=== PATIENT | female | born 1950 | race Caucasian/White ===

== ENCOUNTER 2016-10-18 16:12 | Inpatient (IN) | payer BC, MEDICARE ==
[~2016-10-18] VITALS: Ht 167.6 cm; Wt 76.0 kg
[~2016-10-18 16:12] MED LIST: ALPR0.254 PO; AMLO5TAB2 PO; CARV-39 PO; CARV12.52 PO; CARV12.543 PO; CARV6.252 PO; DABI150C PO; DOXY100T PO; FLUT1AER INH; FURO-92 PO; FURO20TA3 PO; FURO40TA6 PO; HYDR-3138 PO; IPRA3AMP NPPB; LISI-170 PO; MAGN400T26 PO; POT25TAB PO; POTA20TA14 PO; POTA20TA89 PO; PRED10TA PO; PRED5TAB PO; SPIR25TA PO
[2016-10-18] MEDS ORDERED: SODIUM CHLORIDE FLUSH 10ML SYR IVF ONE (16:30)
[2016-10-18 17:07] LABS: HEMOGLOBIN 13.8 g/dL (11.7-16.4)
[2016-10-18 17:17] LABS: BLOOD UREA NITROGEN 15 mg/dL (7-18)
[2016-10-18 17:22] LABS: IS PT STATUS REG ER OR PRE ER? YES
[2016-10-18] MEDS ORDERED: FUROSEMIDE 40 MG/4 ML IV ONE (18:00)
[2016-10-18] MEDS ORDERED: POTASSIUM CHLORIDE 20 MEQ TAB.ER.PRT PO ONE (18:30)
[2016-10-18] MEDS ORDERED: FUROSEMIDE 40 MG/4 ML ONE (18:59)
[2016-10-18] MEDS ORDERED: POTASSIUM CHLORIDE 20 MEQ TAB.ER.PRT ONE (19:00)
[2016-10-18] MEDS ORDERED: SPIR25TA3 PO (19:18)
[2016-10-18] MEDS ORDERED: LEVO25TA4 PO (19:18)
[2016-10-18] MEDS ORDERED: FURO20TA3 PO (19:18)
[2016-10-18] MEDS ORDERED: POTA10TA11 PO (19:18)
[2016-10-18] MEDS ORDERED: BISACODYL 10 MG SUPP PR PRN (19:30)
[2016-10-18] MEDS ORDERED: POLYETHYLENE GLYCOL 17 GM PACKET PO PRN (19:30)
[2016-10-18] MEDS ORDERED: ONDANSETRON 2MG/ML, 2ML IVP PRN (19:30)
[2016-10-18] MEDS ORDERED: ACETAMINOPHEN 325 MG TABLET PO PRN (19:30)
[2016-10-18] MEDS ORDERED: DABIGATRAN 150 MG CAPSULE PO SCH (21:00)
[2016-10-18] MEDS ORDERED: RIVA10TA PO (21:10)
[2016-10-18] MEDS ORDERED: MAGNESIUM SULFATE PMX 4GM/100M 100 ML IV ONE (23:00)
[2016-10-18] MEDS: HEPARIN 5,000 UNITS/ML, 1ML SQ SCH (23:47)
[2016-10-18] MEDS: SODIUM CHLORIDE FLUSH 10ML SYR IVF SCH (23:49)
[2016-10-18] MEDS: SPIRONOLACTONE 25 MG TABLET PO SCH (23:49)
[2016-10-18] MEDS: CARVEDILOL 6.25 MG TABLET PO SCH (23:49)
[2016-10-18] MEDS: RIVAROXABAN 20 MG TABLET PO SCH (23:49)
[2016-10-18 23:55] VITALS: BP 135/96
[2016-10-19 02:07] VITALS: BP 114/84
[2016-10-19] MEDS: HYDROcodone/APAP 5/325 TABLET PO PRN ×3 (02:19→20:39)
[2016-10-19] MEDS: HEPARIN 5,000 UNITS/ML, 1ML SQ SCH (03:19)
[2016-10-19] MEDS: LEVOTHYROXINE 25 MCG TABLET PO SCH (05:37)
[2016-10-19 05:44] LABS: HEMOGLOBIN 13.1 g/dL (11.7-16.4)
[2016-10-19 05:58] LABS: ASPARTATE AMINO TRANSFERASE 25 U/L (15-37); BLOOD UREA NITROGEN 13 mg/dL (7-18)
[2016-10-19 06:57] VITALS: BP 112/81
[2016-10-19] MEDS: MAGNESIUM OXIDE 400 MG TABLET PO SCH (08:45)
[2016-10-19] MEDS: SPIRONOLACTONE 25 MG TABLET PO SCH ×2 (08:45→20:39)
[2016-10-19] MEDS: FUROSEMIDE 40 MG/4 ML IV SCH ×2 (08:45→17:54)
[2016-10-19] MEDS: POTASSIUM CHLORIDE 20 MEQ TAB.ER.PRT PO SCH ×2 (08:45→17:54)
[2016-10-19] MEDS: CARVEDILOL 6.25 MG TABLET PO SCH ×2 (08:45→20:39)
[2016-10-19] MEDS: SODIUM CHLORIDE FLUSH 10ML SYR IVF SCH ×2 (08:45→20:40)
[2016-10-19] MEDS: SENNA/DOCUSATE TABLET PO SCH (08:46)
[2016-10-19] MEDS: FLUTICASONE/VILANTEROL 100-25MCG/INH INH SCH (11:26)
[2016-10-19 13:56] VITALS: BP 106/74
[2016-10-19 18:44] VITALS: BP 112/82
[2016-10-19] MEDS: RIVAROXABAN 20 MG TABLET PO SCH (20:39)
[2016-10-20 00:02] VITALS: BP 105/74
[2016-10-20] MEDS: LEVOTHYROXINE 25 MCG TABLET PO SCH (05:52)
[2016-10-20 06:49] LABS: BLOOD UREA NITROGEN 16 mg/dL (7-18)
[2016-10-20 07:09] VITALS: BP 118/82
[2016-10-20] MEDS: CARVEDILOL 6.25 MG TABLET PO SCH ×2 (08:34→21:27)
[2016-10-20] MEDS: MAGNESIUM OXIDE 400 MG TABLET PO SCH (08:34)
[2016-10-20] MEDS: FUROSEMIDE 40 MG/4 ML IV SCH ×2 (08:34→17:59)
[2016-10-20] MEDS: FLUTICASONE/VILANTEROL 100-25MCG/INH INH SCH (08:35)
[2016-10-20] MEDS: SODIUM CHLORIDE FLUSH 10ML SYR IVF SCH ×2 (08:35→21:45)
[2016-10-20] MEDS: SENNA/DOCUSATE TABLET PO SCH (08:35)
[2016-10-20] MEDS: SPIRONOLACTONE 25 MG TABLET PO SCH ×2 (08:35→21:27)
[2016-10-20] MEDS: POTASSIUM CHLORIDE 20 MEQ TAB.ER.PRT PO SCH ×2 (08:35→17:59)
[2016-10-20 13:13] VITALS: BP 112/82
[2016-10-20] MEDS: HYDROcodone/APAP 5/325 TABLET PO PRN ×2 (18:08→23:12)
[2016-10-20 19:48] VITALS: BP 118/85
[2016-10-20] MEDS: RIVAROXABAN 20 MG TABLET PO SCH (21:27)
[2016-10-20] MEDS: LISINOPRIL 5 MG TABLET PO SCH (21:28)
[2016-10-20] MEDS ORDERED: MAGNESIUM SULFATE PMX 2GM/50ML 50 ML IV ONE (21:30)
[2016-10-20] MEDS: ALBUTEROL/IPRATROPIUM 2.5MG/0.5MG, 3 ML NPPB SCH (22:39)
[2016-10-21 01:42] VITALS: BP_SYST 162; BP_SYST 91; BP_DIAS 62; BP_DIAS 82
[2016-10-21] MEDS: LEVOTHYROXINE 25 MCG TABLET PO SCH (05:25)
[2016-10-21 06:08] LABS: BLOOD UREA NITROGEN 18 mg/dL (7-18)
[2016-10-21 07:05] VITALS: BP 100/68
[2016-10-21] MEDS: FLUTICASONE/VILANTEROL 100-25MCG/INH INH SCH (08:33)
[2016-10-21] MEDS: FUROSEMIDE 40 MG/4 ML IV SCH ×2 (08:34→17:08)
[2016-10-21] MEDS: MAGNESIUM OXIDE 400 MG TABLET PO SCH (08:34)
[2016-10-21] MEDS: POTASSIUM CHLORIDE 20 MEQ TAB.ER.PRT PO SCH ×2 (08:34→17:08)
[2016-10-21] MEDS: LISINOPRIL 5 MG TABLET PO SCH ×2 (08:34→20:12)
[2016-10-21] MEDS: CARVEDILOL 6.25 MG TABLET PO SCH ×2 (08:34→20:12)
[2016-10-21] MEDS: SENNA/DOCUSATE TABLET PO SCH (08:34)
[2016-10-21] MEDS: SPIRONOLACTONE 25 MG TABLET PO SCH ×2 (08:34→20:12)
[2016-10-21] MEDS: SODIUM CHLORIDE FLUSH 10ML SYR IVF SCH ×2 (08:35→20:13)
[2016-10-21] MEDS: HYDROcodone/APAP 5/325 TABLET PO PRN ×4 (08:44→20:17)
[2016-10-21] MEDS: ALBUTEROL/IPRATROPIUM 2.5MG/0.5MG, 3 ML NPPB SCH ×2 (10:24→22:25)
[2016-10-21 15:07] VITALS: BP 91/63
[2016-10-21 19:10] VITALS: BP 107/77
[2016-10-21] MEDS: RIVAROXABAN 20 MG TABLET PO SCH (20:12)
[2016-10-22 02:31] VITALS: BP 116/78
[2016-10-22] MEDS: LEVOTHYROXINE 25 MCG TABLET PO SCH (05:36)
[2016-10-22 05:56] LABS: BLOOD UREA NITROGEN 20 mg/dL (7-18)
[2016-10-22 06:45] VITALS: BP 117/84
[2016-10-22] MEDS: SENNA/DOCUSATE TABLET PO SCH (09:00)
[2016-10-22] MEDS ORDERED: FUROSEMIDE 40 MG TABLET PO SCH (09:00)
[2016-10-22] MEDS: SPIRONOLACTONE 25 MG TABLET PO SCH ×2 (09:31→21:22)
[2016-10-22] MEDS: POTASSIUM CHLORIDE 20 MEQ TAB.ER.PRT PO SCH ×2 (09:31→17:19)
[2016-10-22] MEDS: MAGNESIUM OXIDE 400 MG TABLET PO SCH (09:31)
[2016-10-22] MEDS: CARVEDILOL 6.25 MG TABLET PO SCH ×2 (09:32→21:22)
[2016-10-22] MEDS: LISINOPRIL 5 MG TABLET PO SCH ×2 (09:33→21:22)
[2016-10-22] MEDS: SODIUM CHLORIDE FLUSH 10ML SYR IVF SCH ×2 (09:34→21:22)
[2016-10-22] MEDS: FLUTICASONE/VILANTEROL 100-25MCG/INH INH SCH (09:34)
[2016-10-22] MEDS: HYDROcodone/APAP 5/325 TABLET PO PRN ×2 (10:04→21:22)
[2016-10-22] MEDS: ALBUTEROL/IPRATROPIUM 2.5MG/0.5MG, 3 ML NPPB SCH ×4 (11:17→23:17)
[2016-10-22 12:38] VITALS: BP 91/61
[2016-10-22 20:00] VITALS: BP 106/74
[2016-10-22] MEDS: RIVAROXABAN 20 MG TABLET PO SCH (21:22)
[2016-10-23] VITALS (8 sets, daily range): BP systolic 71–103; BP diastolic 37–74
[2016-10-23 05:30] LABS: HEMOGLOBIN 13.9 g/dL (11.7-16.4)
[2016-10-23] MEDS: LEVOTHYROXINE 25 MCG TABLET PO SCH (05:33)
[2016-10-23 05:38] LABS: BLOOD UREA NITROGEN 22 mg/dL (7-18)
[2016-10-23] MEDS ORDERED: SODIUM CHLORIDE 0.9%, 500ML IVBOLUS ONE ×4 (06:15→20:30)
[2016-10-23] MEDS ORDERED: PHARMACY MAY ADJ FOR RENAL FX MC PRN (06:30)
[2016-10-23] MEDS: SODIUM CHLORIDE FLUSH 10ML SYR IVF SCH ×2 (09:00→23:14)
[2016-10-23] MEDS: SPIRONOLACTONE 25 MG TABLET PO SCH ×2 (09:00→20:17)
[2016-10-23] MEDS: MAGNESIUM OXIDE 400 MG TABLET PO SCH (09:00)
[2016-10-23] MEDS: FLUTICASONE/VILANTEROL 100-25MCG/INH INH SCH (09:00)
[2016-10-23] MEDS: SENNA/DOCUSATE TABLET PO SCH (09:00)
[2016-10-23] MEDS: ALBUTEROL/IPRATROPIUM 2.5MG/0.5MG, 3 ML NPPB SCH ×2 (09:13→21:25)
[2016-10-23] MEDS: PIPERACILLIN/TAZO/PMX 3.375GM 50 ML IV SCH ×2 (10:00→23:14)
[2016-10-23 12:09] LABS: BLOOD UREA NITROGEN 23 mg/dL (7-18)
[2016-10-23] MEDS ORDERED: PHARMACOKINETIC MONITORING MC PRN (18:30)
[2016-10-23] MEDS ORDERED: PHARMACOKINETIC CONSULTATION MC ONE (18:30)
[2016-10-23] MEDS ORDERED: VANCOMYCIN 1,400 MG in SODIUM CHLORIDE 0.9% 250 ML IV SCH (18:30)
[2016-10-23] MEDS ORDERED: VANCOMYCIN PER PHARMACY MC PRN (18:30)
[2016-10-23] MEDS: RIVAROXABAN 20 MG TABLET PO SCH (20:51)
[2016-10-24] MEDS ORDERED: SODIUM CHLORIDE 0.9% 1,000 ML IV ONE (01:30)
[2016-10-24 02:15] VITALS: BP 75/53
[2016-10-24 02:20] VITALS: BP 74/55
[2016-10-24] MEDS ORDERED: SODIUM CHLORIDE 0.9% 1,000ML IVBOLUS ONE ×3 (02:30→04:00)
[2016-10-24 03:59] VITALS: BP 67/45
[2016-10-24] MEDS ORDERED: NOREPINEPHRINE 4 MG in SODIUM CHLORIDE 0.9% 246 ML IV PRN (04:00)
[2016-10-24] MEDS: PIPERACILLIN/TAZO/PMX 3.375GM 50 ML IV SCH ×3 (05:49→17:39)
[2016-10-24] MEDS: LEVOTHYROXINE 25 MCG TABLET PO SCH (05:50)
[2016-10-24 05:58] LABS: HEMOGLOBIN 12.7 g/dL (11.7-16.4)
[2016-10-24 06:12] LABS: BLOOD UREA NITROGEN 26 mg/dL (7-18)
[2016-10-24 06:28] LABS: DIFF TOTAL CELLS COUNTED 100 CELL DIFF
[2016-10-24 06:30] LABS: VERIFY COUNTS? YES
[2016-10-24 06:33] LABS: ANISOCYTOSIS 1+; HYPOCHROMIA 1+
[2016-10-24] MEDS: ALBUTEROL/IPRATROPIUM 2.5MG/0.5MG, 3 ML NPPB SCH ×2 (09:00→21:19)
[2016-10-24] MEDS: SENNA/DOCUSATE TABLET PO SCH ×2 (09:00→09:30)
[2016-10-24] MEDS: MAGNESIUM OXIDE 400 MG TABLET PO SCH (09:30)
[2016-10-24] MEDS: SODIUM CHLORIDE FLUSH 10ML SYR IVF SCH ×2 (09:31→19:41)
[2016-10-24] MEDS: FLUTICASONE/VILANTEROL 100-25MCG/INH INH SCH (09:31)
[2016-10-24] MEDS: HYDROcodone/APAP 5/325 TABLET PO PRN ×2 (09:47→19:42)
[2016-10-24] MEDS: SODIUM CHLORIDE 0.9%, 250ML IVBOLUS PRN (16:00)
[2016-10-24] MEDS: RIVAROXABAN 20 MG TABLET PO SCH (19:41)
[2016-10-25] MEDS: PIPERACILLIN/TAZO/PMX 3.375GM 50 ML IV SCH ×2 (00:10→06:15)
[2016-10-25 04:00] VITALS: BP 105/83
[2016-10-25 04:56] LABS: HEMOGLOBIN 12.8 g/dL (11.7-16.4)
[2016-10-25 05:00] LABS: BLOOD UREA NITROGEN 28 mg/dL (7-18)
[2016-10-25 05:04] LABS: ASPARTATE AMINO TRANSFERASE 20 U/L (15-37)
[2016-10-25 06:03] LABS: DIFF TOTAL CELLS COUNTED 100 CELL DIFF
[2016-10-25 06:04] LABS: VERIFY COUNTS? YES
[2016-10-25 06:05] LABS: ANISOCYTOSIS 1+; LARGE PLATELETS 1+
[2016-10-25] MEDS: LEVOTHYROXINE 25 MCG TABLET PO SCH (06:15)
[2016-10-25] MEDS ORDERED: VANCOMYCIN 1,400 MG in SODIUM CHLORIDE 0.9% 250 ML IV SCH (08:00)
[2016-10-25] MEDS: FLUTICASONE/VILANTEROL 100-25MCG/INH INH SCH (08:40)
[2016-10-25] MEDS: MAGNESIUM OXIDE 400 MG TABLET PO SCH (08:40)
[2016-10-25] MEDS: SENNA/DOCUSATE TABLET PO SCH (08:43)
[2016-10-25] MEDS: ALBUTEROL/IPRATROPIUM 2.5MG/0.5MG, 3 ML NPPB SCH ×2 (08:43→18:35)
[2016-10-25] MEDS: SODIUM CHLORIDE FLUSH 10ML SYR IVF SCH ×2 (08:43→19:29)
[2016-10-25] MEDS ORDERED: CEFAZOLIN PMX 2GM/100ML 100 ML IV SCH (11:00)
[2016-10-25] MEDS: HYDROcodone/APAP 5/325 TABLET PO PRN ×2 (12:10→19:30)
[2016-10-25] MEDS: RIVAROXABAN 20 MG TABLET PO SCH (19:29)
[2016-10-25] MEDS: CEFAZOLIN PMX 2GM/50ML 50 ML IV SCH (19:29)
[2016-10-26] MEDS: SODIUM CHLORIDE 0.9%, 250ML IVBOLUS PRN ×2 (00:19→05:37)
[2016-10-26] MEDS: CEFAZOLIN PMX 2GM/50ML 50 ML IV SCH ×3 (02:55→22:46)
[2016-10-26] MEDS: HYDROcodone/APAP 5/325 TABLET PO PRN ×4 (03:21→14:58)
[2016-10-26] MEDS: ALBUTEROL/IPRATROPIUM 2.5MG/0.5MG, 3 ML NPPB SCH ×2 (03:24→15:40)
[2016-10-26 04:26] VITALS: BP 130/99
[2016-10-26 04:53] LABS: HEMOGLOBIN 13.1 g/dL (11.7-16.4)
[2016-10-26] MEDS: LEVOTHYROXINE 25 MCG TABLET PO SCH (06:07)
[2016-10-26] MEDS: SENNA/DOCUSATE TABLET PO SCH (09:00)
[2016-10-26] MEDS: FLUTICASONE/VILANTEROL 100-25MCG/INH INH SCH (09:32)
[2016-10-26] MEDS: SODIUM CHLORIDE FLUSH 10ML SYR IVF SCH ×2 (09:32→22:48)
[2016-10-26] MEDS: MAGNESIUM OXIDE 400 MG TABLET PO SCH (09:33)
[2016-10-26] MEDS: ACETYLCYSTEINE 600 MG CAPSULE PO SCH (22:47)
[2016-10-26] MEDS: RIVAROXABAN 20 MG TABLET PO SCH (22:47)
[2016-10-26 22:57] VITALS: BP 145/94
[2016-10-27 01:26] VITALS: BP 142/101
[2016-10-27] MEDS ORDERED: OMNIPAQUE 350 MG/ML, 100ML BOTTLE ONE (03:39)
[2016-10-27 05:55] LABS: HEMOGLOBIN 13.3 g/dL (11.7-16.4)
[2016-10-27] MEDS: LEVOTHYROXINE 25 MCG TABLET PO SCH (06:00)
[2016-10-27] MEDS: CEFAZOLIN PMX 2GM/50ML 50 ML IV SCH ×3 (06:00→22:00)
[2016-10-27 06:21] LABS: BLOOD UREA NITROGEN 16 mg/dL (7-18)
[2016-10-27 07:05] VITALS: BP 128/91
[2016-10-27] MEDS: SODIUM CHLORIDE FLUSH 10ML SYR IVF SCH ×2 (09:00→21:06)
[2016-10-27] MEDS: SENNA/DOCUSATE TABLET PO SCH (09:00)
[2016-10-27] MEDS ORDERED: PROMETHAZINE 25 MG/ML, 1ML IM PRN (09:40)
[2016-10-27] MEDS: MAGNESIUM OXIDE 400 MG TABLET PO SCH (11:44)
[2016-10-27] MEDS: ACETYLCYSTEINE 600 MG CAPSULE PO SCH ×2 (11:44→21:06)
[2016-10-27] MEDS: FLUTICASONE/VILANTEROL 100-25MCG/INH INH SCH (11:45)
[2016-10-27 12:36] VITALS: BP 132/85
[2016-10-27] MEDS: HYDROcodone/APAP 5/325 TABLET PO PRN (18:19)
[2016-10-27 20:08] VITALS: BP 100/70
[2016-10-27] MEDS: RIVAROXABAN 20 MG TABLET PO SCH (21:06)
[2016-10-28] VITALS: BP 123/84
[2016-10-28] MEDS: LEVOTHYROXINE 25 MCG TABLET PO SCH (06:00)
[2016-10-28] MEDS: CEFAZOLIN PMX 2GM/50ML 50 ML IV SCH ×3 (06:00→22:19)
[2016-10-28 06:59] VITALS: BP 118/77
[2016-10-28] MEDS: SENNA/DOCUSATE TABLET PO SCH (09:00)
[2016-10-28] MEDS: SODIUM CHLORIDE FLUSH 10ML SYR IVF SCH ×2 (09:00→22:18)
[2016-10-28] MEDS: MAGNESIUM OXIDE 400 MG TABLET PO SCH (09:34)
[2016-10-28] MEDS: FLUTICASONE/VILANTEROL 100-25MCG/INH INH SCH (09:35)
[2016-10-28] MEDS: HYDROcodone/APAP 5/325 TABLET PO PRN ×2 (09:35→20:51)
[2016-10-28] MEDS: ACETYLCYSTEINE 600 MG CAPSULE PO SCH ×2 (09:35→20:51)
[2016-10-28] MEDS: ALBUTEROL/IPRATROPIUM 2.5MG/0.5MG, 3 ML NPPB SCH ×3 (10:15→21:00)
[2016-10-28 14:43] VITALS: BP 132/91
[2016-10-28] MEDS: FUROSEMIDE 20 MG/2 ML IV SCH (15:03)
[2016-10-28 19:11] VITALS: BP 117/83
[2016-10-28] MEDS: RIVAROXABAN 20 MG TABLET PO SCH (20:51)
[2016-10-29 01:23] VITALS: BP 119/79
[2016-10-29 04:33] LABS: HEMOGLOBIN 13.6 g/dL (11.7-16.4)
[2016-10-29 04:50] LABS: BLOOD UREA NITROGEN 15 mg/dL (7-18)
[2016-10-29] MEDS: LEVOTHYROXINE 25 MCG TABLET PO SCH (06:18)
[2016-10-29] MEDS: CEFAZOLIN PMX 2GM/50ML 50 ML IV SCH ×3 (06:19→22:26)
[2016-10-29] MEDS: FUROSEMIDE 20 MG/2 ML IV SCH ×2 (07:30→17:07)
[2016-10-29 07:39] VITALS: BP 123/88
[2016-10-29] MEDS: SENNA/DOCUSATE TABLET PO SCH (07:56)
[2016-10-29] MEDS: ACETYLCYSTEINE 600 MG CAPSULE PO SCH ×2 (07:56→20:34)
[2016-10-29] MEDS: MAGNESIUM OXIDE 400 MG TABLET PO SCH (07:56)
[2016-10-29] MEDS: FLUTICASONE/VILANTEROL 100-25MCG/INH INH SCH (07:56)
[2016-10-29] MEDS: SODIUM CHLORIDE FLUSH 10ML SYR IVF SCH ×2 (07:56→20:34)
[2016-10-29] MEDS: HYDROcodone/APAP 5/325 TABLET PO PRN ×2 (11:39→20:33)
[2016-10-29 13:47] VITALS: BP 130/86
[2016-10-29 18:53] VITALS: BP 129/89
[2016-10-29] MEDS: RIVAROXABAN 20 MG TABLET PO SCH (20:33)
[2016-10-29] MEDS: ALBUTEROL/IPRATROPIUM 2.5MG/0.5MG, 3 ML NPPB SCH (21:15)
[2016-10-30 00:55] VITALS: BP 126/83
[2016-10-30] MEDS: HYDROcodone/APAP 5/325 TABLET PO PRN ×2 (00:56→11:51)
[2016-10-30 04:41] LABS: BLOOD UREA NITROGEN 13 mg/dL (7-18)
[2016-10-30] MEDS: CEFAZOLIN PMX 2GM/50ML 50 ML IV SCH ×3 (06:45→21:00)
[2016-10-30] MEDS: LEVOTHYROXINE 25 MCG TABLET PO SCH (06:45)
[2016-10-30] MEDS: ALBUTEROL/IPRATROPIUM 2.5MG/0.5MG, 3 ML NPPB SCH ×3 (07:05→20:43)
[2016-10-30] MEDS: FUROSEMIDE 20 MG/2 ML IV SCH ×2 (07:30→17:00)
[2016-10-30 07:46] VITALS: BP 111/78
[2016-10-30] MEDS: SODIUM CHLORIDE FLUSH 10ML SYR IVF SCH ×2 (09:00→20:58)
[2016-10-30] MEDS: SENNA/DOCUSATE TABLET PO SCH (09:00)
[2016-10-30] MEDS: FLUTICASONE/VILANTEROL 100-25MCG/INH INH SCH (09:00)
[2016-10-30] MEDS: ACETYLCYSTEINE 600 MG CAPSULE PO SCH ×2 (09:00→20:58)
[2016-10-30] MEDS: MAGNESIUM OXIDE 400 MG TABLET PO SCH (09:00)
[2016-10-30 13:21] VITALS: BP 122/84
[2016-10-30 19:28] VITALS: BP 136/94
[2016-10-30] MEDS: RIVAROXABAN 20 MG TABLET PO SCH (20:58)
[2016-10-31 03:15] VITALS: BP 130/89
[2016-10-31 04:57] LABS: HEMOGLOBIN 13.1 g/dL (11.7-16.4)
[2016-10-31 05:05] LABS: BLOOD UREA NITROGEN 11 mg/dL (7-18)
[2016-10-31] MEDS: CEFAZOLIN PMX 2GM/50ML 50 ML IV SCH ×3 (05:39→21:13)
[2016-10-31] MEDS: LEVOTHYROXINE 25 MCG TABLET PO SCH (05:39)
[2016-10-31 08:33] VITALS: BP 129/93
[2016-10-31] MEDS: ALBUTEROL/IPRATROPIUM 2.5MG/0.5MG, 3 ML NPPB SCH ×3 (08:55→20:52)
[2016-10-31] MEDS: SENNA/DOCUSATE TABLET PO SCH (09:00)
[2016-10-31] MEDS: SODIUM CHLORIDE FLUSH 10ML SYR IVF SCH ×2 (09:37→21:14)
[2016-10-31] MEDS: FUROSEMIDE 20 MG/2 ML IV SCH ×2 (09:37→17:22)
[2016-10-31] MEDS: MAGNESIUM OXIDE 400 MG TABLET PO SCH (09:37)
[2016-10-31] MEDS: FLUTICASONE/VILANTEROL 100-25MCG/INH INH SCH (09:37)
[2016-10-31] MEDS: ACETYLCYSTEINE 600 MG CAPSULE PO SCH ×2 (09:38→21:14)
[2016-10-31 14:07] VITALS: BP 119/81
[2016-10-31 17:06] VITALS: BP 129/91
[2016-10-31] MEDS: HYDROcodone/APAP 5/325 TABLET PO PRN (18:01)
[2016-10-31 19:18] VITALS: BP 118/80
[2016-10-31] MEDS: RIVAROXABAN 20 MG TABLET PO SCH (21:13)
[2016-11-01 02:15] VITALS: BP 133/89
[2016-11-01] MEDS: LEVOTHYROXINE 25 MCG TABLET PO SCH (05:55)
[2016-11-01] MEDS: CEFAZOLIN PMX 2GM/50ML 50 ML IV SCH ×2 (05:55→13:33)
[2016-11-01 06:13] LABS: HEMOGLOBIN 12.9 g/dL (11.7-16.4)
[2016-11-01 06:25] LABS: BLOOD UREA NITROGEN 8 mg/dL (7-18)
[2016-11-01] MEDS: ALBUTEROL/IPRATROPIUM 2.5MG/0.5MG, 3 ML NPPB SCH (07:11)
[2016-11-01 07:21] VITALS: BP 137/91
[2016-11-01] MEDS ORDERED: ALBUTEROL/IPRATROPIUM 2.5MG/0.5MG, 3 ML NPPB PRN (08:00)
[2016-11-01] MEDS: MAGNESIUM OXIDE 400 MG TABLET PO SCH (09:38)
[2016-11-01] MEDS: SODIUM CHLORIDE FLUSH 10ML SYR IVF SCH (09:38)
[2016-11-01] MEDS: HYDROcodone/APAP 5/325 TABLET PO PRN (09:38)
[2016-11-01] MEDS: ACETYLCYSTEINE 600 MG CAPSULE PO SCH (09:38)
[2016-11-01] MEDS: FLUTICASONE/VILANTEROL 100-25MCG/INH INH SCH (09:38)
[2016-11-01] MEDS: FUROSEMIDE 20 MG/2 ML IV SCH (09:39)
[2016-11-01] MEDS: SENNA/DOCUSATE TABLET PO SCH (09:39)
[2016-11-01] MEDS ORDERED: CEFA2PLA9 IV (11:49)
[2016-11-01] MEDS ORDERED: LISI5TAB7 PO (15:18)
== END 2016-11-01 15:10 | DRG 949 ==
LOC: ED 18:00 → EDIP 18:01 → ED 18:14 → 4EST 22:54 → CCU 10-24 02:29 → ICU 10-27 03:14 → 4WST 10-31 16:57
PROC: 0T9B70Z Drainage of Bladder with Drainage Device, Via Natural or Artificial Opening (ICD-10-PCS; 2016-10-18)
PROC: 02HV33Z Insertion of Infusion Device into Superior Vena Cava, Percutaneous Approach (ICD-10-PCS; principal; 2016-10-31)
PROC: B548ZZA Ultrasonography of Superior Vena Cava, Guidance (ICD-10-PCS; 2016-10-31)
DX: Z79.01 Long term (current) use of anticoagulants (principal); A41.01 Sepsis due to Methicillin susceptible Staphylococcus aureus; I50.43 Acute on chronic combined systolic (congestive) and diastolic (congestive) heart failure; G93.41 Metabolic encephalopathy; D68.69 Other thrombophilia; E44.0 Moderate protein-calorie malnutrition; E87.1 Hypo-osmolality and hyponatremia; I42.9 Cardiomyopathy, unspecified; I48.92 Unspecified atrial flutter; I11.0 Hypertensive heart disease with heart failure; E03.9 Hypothyroidism, unspecified; J44.9 Chronic obstructive pulmonary disease, unspecified; I48.91 Unspecified atrial fibrillation; Z93.3 Colostomy status; Z95.0 Presence of cardiac pacemaker; Z87.891 Personal history of nicotine dependence; Z80.0 Family history of malignant neoplasm of digestive organs; Z82.61 Family history of arthritis; E87.6 Hypokalemia; E87.5 Hyperkalemia; L72.3 Sebaceous cyst
CPT/HCPCS: 36415; 36569; 70450; 71010; 71260; 72126; 72129; 72132; 74177; 76937; 77001; 80048; 80053; 80076; 81001; 81003; 82040; 82533; 82962; 83605; 83735; 83880; 84484; 85025; 85610; 85651; 85730; 86141; 87040; 87077; 87081; 87086; 87147; 87186; 93005; 93306; 93308; 93321; 93325; 93880; 94640; 96374; J0690; J1940; J2405; J2543; J2550; J3370; J7620; Q9967; C1751; J3475; J7030; J7040; J7050

== ENCOUNTER 2016-11-09 09:12 | Inpatient (IN) | payer MEDICARE, BC ==
[~2016-11-09] VITALS: Ht 167.6 cm; Wt 76.0 kg
[~2016-11-09 09:12] MED LIST changes: +CEFA2PLA9 IV; +FURO20TA3 IV; +LEVO25TA4 PO; +LISI5TAB7 PO; +POTA10TA11 PO; +RIVA10TA PO; +SPIR25TA3 PO
[2016-11-09] MEDS ORDERED: CARV3.122 PO (09:30)
[2016-11-09] MEDS ORDERED: SODIUM CHLORIDE 0.9%, 250ML IVBOLUS ONE (10:00)
[2016-11-09] MEDS ORDERED: SODIUM CHLORIDE FLUSH 10ML SYR IVF ONE (10:00)
[2016-11-09 10:32] LABS: ASPARTATE AMINO TRANSFERASE 28 U/L (15-37); BLOOD UREA NITROGEN 14 mg/dL (7-18)
[2016-11-09] MEDS ORDERED: CEFTRIAXONE PMX 1GM/50ML 50 ML ONE (12:27)
[2016-11-09] MEDS ORDERED: CEFTRIAXONE PMX 1GM/50ML 50 ML IV ONE (12:30)
[2016-11-09 13:30] VITALS: BP 111/79
[2016-11-09] MEDS ORDERED: ONDANSETRON 2MG/ML, 2ML IVP PRN (14:00)
[2016-11-09] MEDS ORDERED: BISACODYL 10 MG SUPP PR PRN (14:00)
[2016-11-09] MEDS ORDERED: POLYETHYLENE GLYCOL 17 GM PACKET PO PRN (14:00)
[2016-11-09] MEDS ORDERED: ACETAMINOPHEN 325 MG TABLET PO PRN (14:00)
[2016-11-09] MEDS ORDERED: CEFAZOLIN SODIUM IV SCH (14:00)
[2016-11-09] MEDS ORDERED: NACL 0.9% IV SCH (14:00)
[2016-11-09] MEDS ORDERED: [UNRECOGNIZED DRUG - OTHER] IV SCH (14:00)
[2016-11-09 14:43] VITALS: BP 110/79
[2016-11-09 15:03] VITALS: BP 111/79
[2016-11-09] MEDS ORDERED: MAGNESIUM SULFATE PMX 4GM/100M 100 ML IV ONE (16:30)
[2016-11-09] MEDS: CEFAZOLIN PMX 2GM/50ML 50 ML IV SCH ×2 (17:11→21:32)
[2016-11-09] MEDS: POTASSIUM CHLORIDE 20 MEQ TAB.ER.PRT PO SCH (17:11)
[2016-11-09 20:35] VITALS: BP 127/87
[2016-11-09] MEDS: RIVAROXABAN 10 MG TABLET PO SCH (21:00)
[2016-11-09] MEDS: ONDANSETRON ODT 4 MG PO PRN (21:33)
[2016-11-09] MEDS: CARVEDILOL 3.125 MG TABLET PO SCH (21:33)
[2016-11-09] MEDS: HYDROcodone/APAP 5/325 TABLET PO PRN (21:34)
[2016-11-10 02:55] VITALS: BP 105/73
[2016-11-10] MEDS: ALBUTEROL/IPRATROPIUM 2.5MG/0.5MG, 3 ML NPPB PRN ×2 (03:19→15:35)
[2016-11-10] MEDS: HYDROcodone/APAP 5/325 TABLET PO PRN ×3 (04:25→23:23)
[2016-11-10 05:22] LABS: BLOOD UREA NITROGEN 13 mg/dL (7-18)
[2016-11-10] MEDS: CEFAZOLIN PMX 2GM/50ML 50 ML IV SCH ×3 (05:52→23:23)
[2016-11-10] MEDS ORDERED: LEVOTHYROXINE 25 MCG TABLET PO SCH (06:00)
[2016-11-10 07:55] VITALS: BP 116/80
[2016-11-10] MEDS ORDERED: LISINOPRIL 5 MG TABLET PO SCH (09:00)
[2016-11-10] MEDS ORDERED: SPIRONOLACTONE 25 MG TABLET PO SCH (09:00)
[2016-11-10] MEDS: SENNA/DOCUSATE TABLET PO SCH (09:00)
[2016-11-10] MEDS: POTASSIUM CHLORIDE 20 MEQ TAB.ER.PRT PO SCH (09:17)
[2016-11-10] MEDS: FUROSEMIDE 20 MG TABLET PO SCH (09:18)
[2016-11-10] MEDS: CARVEDILOL 3.125 MG TABLET PO SCH ×2 (09:18→21:33)
[2016-11-10] MEDS: LISINOPRIL 5 MG TABLET PO SCH (09:19)
[2016-11-10] MEDS ORDERED: CEFTRIAXONE PMX 1GM/50ML 50 ML IV SCH (12:00)
[2016-11-10 13:53] VITALS: BP 95/68
[2016-11-10] MEDS ORDERED: POLYETHYLENE GLYCOL 17 GM PACKET PO ONE (15:30)
[2016-11-10 20:10] VITALS: BP 109/54
[2016-11-10] MEDS: RIVAROXABAN 10 MG TABLET PO SCH (21:33)
[2016-11-10] MEDS ORDERED: ALUMINUM/MAG/SIMETHICONE 30 ML UDC PO PRN (23:30)
[2016-11-11 02:24] VITALS: BP 101/71
[2016-11-11] MEDS ORDERED: LEVOTHYROXINE 25 MCG TABLET PO SCH (06:00)
[2016-11-11 06:02] LABS: BLOOD UREA NITROGEN 11 mg/dL (7-18)
[2016-11-11] MEDS: LEVOTHYROXINE 25 MCG TABLET PO SCH (06:14)
[2016-11-11 06:49] VITALS: BP 99/69
[2016-11-11] MEDS: ONDANSETRON ODT 4 MG PO PRN (07:43)
[2016-11-11] MEDS: LISINOPRIL 5 MG TABLET PO SCH (07:44)
[2016-11-11] MEDS: CEFAZOLIN PMX 2GM/50ML 50 ML IV SCH ×2 (07:45→17:03)
[2016-11-11] MEDS: POTASSIUM CHLORIDE 10 MEQ TABLET.ER PO SCH (07:45)
[2016-11-11] MEDS: FUROSEMIDE 20 MG TABLET PO SCH (07:45)
[2016-11-11] MEDS: SENNA/DOCUSATE TABLET PO SCH (07:45)
[2016-11-11] MEDS: CARVEDILOL 3.125 MG TABLET PO SCH ×2 (07:45→21:42)
[2016-11-11] MEDS: ALBUTEROL/IPRATROPIUM 2.5MG/0.5MG, 3 ML NPPB PRN ×2 (08:58→15:34)
[2016-11-11 12:24] VITALS: BP 108/71
[2016-11-11] MEDS ORDERED: MAGNESIUM SULFATE PMX 4GM/100M 100 ML IV ONE (15:30)
[2016-11-11] MEDS ORDERED: FUROSEMIDE 20 MG/2 ML IV ONE (15:30)
[2016-11-11] MEDS ORDERED: POTASSIUM CHLORIDE 20 MEQ TAB.ER.PRT PO ONE (15:30)
[2016-11-11] MEDS: ALBUTEROL/IPRATROPIUM 2.5MG/0.5MG, 3 ML NPPB SCH ×2 (16:14→19:25)
[2016-11-11] MEDS: LORazepam 1MG TABLET PO PRN (17:03)
[2016-11-11 19:18] VITALS: BP 104/61
[2016-11-11] MEDS: RIVAROXABAN 10 MG TABLET PO SCH (21:42)
[2016-11-12 00:46] VITALS: BP 119/88
[2016-11-12] MEDS: CEFAZOLIN PMX 2GM/50ML 50 ML IV SCH ×3 (01:15→17:10)
[2016-11-12] MEDS: HYDROcodone/APAP 5/325 TABLET PO PRN (04:03)
[2016-11-12 05:02] LABS: BLOOD UREA NITROGEN 9 mg/dL (7-18)
[2016-11-12 07:13] VITALS: BP 107/74
[2016-11-12] MEDS: ALBUTEROL/IPRATROPIUM 2.5MG/0.5MG, 3 ML NPPB SCH ×4 (07:25→20:57)
[2016-11-12] MEDS: SENNA/DOCUSATE TABLET PO SCH (08:47)
[2016-11-12] MEDS: CARVEDILOL 3.125 MG TABLET PO SCH ×2 (08:59→20:12)
[2016-11-12] MEDS: FUROSEMIDE 20 MG TABLET PO SCH (08:59)
[2016-11-12] MEDS: LISINOPRIL 5 MG TABLET PO SCH (08:59)
[2016-11-12] MEDS: POTASSIUM CHLORIDE 10 MEQ TABLET.ER PO SCH (08:59)
[2016-11-12] MEDS: SPIRONOLACTONE 25 MG TABLET PO SCH (12:42)
[2016-11-12 13:03] VITALS: BP 109/80
[2016-11-12] MEDS: LORazepam 1MG TABLET PO PRN ×2 (14:29→22:52)
[2016-11-12 19:30] VITALS: BP 110/81
[2016-11-12] MEDS: RIVAROXABAN 10 MG TABLET PO SCH (20:12)
[2016-11-13 01:07] VITALS: BP 126/89
[2016-11-13] MEDS: CEFAZOLIN PMX 2GM/50ML 50 ML IV SCH ×2 (01:20→09:27)
[2016-11-13] MEDS: ALBUTEROL/IPRATROPIUM 2.5MG/0.5MG, 3 ML NPPB SCH ×3 (03:13→11:00)
[2016-11-13 04:52] LABS: BLOOD UREA NITROGEN 10 mg/dL (7-18)
[2016-11-13] MEDS: LEVOTHYROXINE 25 MCG TABLET PO SCH (05:56)
[2016-11-13] MEDS: POTASSIUM CHLORIDE 20 MEQ TAB.ER.PRT PO SCH ×2 (08:51→09:27)
[2016-11-13] MEDS: POTASSIUM CHLORIDE 10 MEQ TABLET.ER PO SCH (08:51)
[2016-11-13 08:56] VITALS: BP 114/81
[2016-11-13] MEDS: CARVEDILOL 3.125 MG TABLET PO SCH (09:26)
[2016-11-13] MEDS: SPIRONOLACTONE 25 MG TABLET PO SCH (09:26)
[2016-11-13] MEDS: FUROSEMIDE 20 MG TABLET PO SCH (09:26)
[2016-11-13] MEDS: SENNA/DOCUSATE TABLET PO SCH (09:27)
[2016-11-13] MEDS: LISINOPRIL 5 MG TABLET PO SCH (09:27)
[2016-11-13] MEDS ORDERED: LEVO25TA2 PO ×2 (11:22)
[2016-11-13] MEDS ORDERED: FURO20TA3 PO (11:22)
[2016-11-13] MEDS ORDERED: POTA10TA5 PO (11:22)
[2016-11-13] MEDS: HYDROcodone/APAP 5/325 TABLET PO PRN (11:24)
[2016-11-13 13:43] VITALS: BP 111/76
[2016-11-13] MEDS ORDERED: LISI5TAB7 PO (16:00)
== END 2016-11-13 16:06 | DRG 312 ==
LOC: ED 11:29 → EDIP 12:11 → 3NE 13:02
PROVIDERS: ADMIT Internal Medicine; ATTEND Internal Medicine
PROC: 0T9B70Z Drainage of Bladder with Drainage Device, Via Natural or Artificial Opening (ICD-10-PCS; principal; 2016-11-09)
DX: I95.2 Hypotension due to drugs (principal); E87.1 Hypo-osmolality and hyponatremia; E44.0 Moderate protein-calorie malnutrition; J96.10 Chronic respiratory failure, unspecified whether with hypoxia or hypercapnia; J98.11 Atelectasis; I50.42 Chronic combined systolic (congestive) and diastolic (congestive) heart failure; D68.59 Other primary thrombophilia; I42.9 Cardiomyopathy, unspecified; E87.3 Alkalosis; T83.69XA Infection and inflammatory reaction due to other prosthetic device, implant and graft in genital tract, initial encounter; K57.92 Diverticulitis of intestine, part unspecified, without perforation or abscess without bleeding; L72.3 Sebaceous cyst; E03.9 Hypothyroidism, unspecified; E87.6 Hypokalemia; G89.29 Other chronic pain; I11.0 Hypertensive heart disease with heart failure; I48.91 Unspecified atrial fibrillation; J44.9 Chronic obstructive pulmonary disease, unspecified; K59.00 Constipation, unspecified; T50.1X5A Adverse effect of loop [high-ceiling] diuretics, initial encounter; T50.2X5A Adverse effect of carbonic-anhydrase inhibitors, benzothiadiazides and other diuretics, initial encounter; Z79.01 Long term (current) use of anticoagulants; Z86.19 Personal history of other infectious and parasitic diseases; Z87.891 Personal history of nicotine dependence; Z93.3 Colostomy status; Z99.81 Dependence on supplemental oxygen; Z68.27 Body mass index [BMI] 27.0-27.9, adult; Y92.89 Other specified places as the place of occurrence of the external cause; B95.61 Methicillin susceptible Staphylococcus aureus infection as the cause of diseases classified elsewhere; R53.1 Weakness
CPT/HCPCS: 36415; 71010; 74000; 80048; 80053; 81001; 83605; 83735; 83880; 84100; 84443; 85025; 87086; 93005; 94640; 96365; J0690; J0696; J7620; Q0162; J1940; J3475; J7050

== ENCOUNTER 2016-11-19 14:27 | Inpatient (IN) | payer BC, MEDICARE ==
[~2016-11-19] VITALS: Ht 167.6 cm; Wt 71.1 kg
[~2016-11-19 14:27] MED LIST changes: +CARV3.122 PO; +LEVO25TA2 PO; +POTA10TA5 PO
[2016-11-19] MEDS ORDERED: FUROSEMIDE 40 MG/4 ML ONE (14:44)
[2016-11-19] MEDS ORDERED: LORazepam 2 MG/ML, 1ML ONE (14:44)
[2016-11-19] MEDS ORDERED: methylPREDNISolone SOD SUCC 125 MG/2 ML IVP ONE (15:00)
[2016-11-19] MEDS ORDERED: PLEASE ENTER HEIGHT AND WEIGHT MC SCH (15:00)
[2016-11-19] MEDS ORDERED: ALBUTEROL SULFATE 2.5 MG/3 ML NPPB ONE (15:00)
[2016-11-19] MEDS ORDERED: LORazepam 2 MG/ML, 1ML IVP ONE (15:00)
[2016-11-19] MEDS ORDERED: FUROSEMIDE 40 MG/4 ML IVP ONE (15:00)
[2016-11-19] MEDS ORDERED: SODIUM CHLORIDE FLUSH 10ML SYR IVF ONE (15:00)
[2016-11-19] MEDS ORDERED: methylPREDNISolone SOD SUCC 125 MG/2 ML ONE (15:05)
[2016-11-19 15:08] LABS: ASPARTATE AMINO TRANSFERASE 33 U/L (15-37); BLOOD UREA NITROGEN 10 mg/dL (7-18)
[2016-11-19] MEDS ORDERED: ALBUTEROL SULFATE 2.5 MG/3 ML ONE (15:15)
[2016-11-19 15:17] LABS: IS PT STATUS REG ER OR PRE ER? YES
[2016-11-19] MEDS ORDERED: MAGNESIUM SULFATE PMX 2GM/50ML 50 ML IV ONE (17:00)
[2016-11-19 20:00] VITALS: BP 131/92
[2016-11-19] MEDS: OXYBUTYNIN CHLORIDE 5 MG TABLET PO SCH ×2 (21:00→21:05)
[2016-11-19] MEDS: RIVAROXABAN 10 MG TABLET PO SCH (21:00)
[2016-11-19] MEDS ORDERED: RIVAROXABAN 10 MG TABLET PO SCH (21:00)
[2016-11-19] MEDS: CEFTRIAXONE PMX 1GM/50ML 50 ML IV SCH (21:04)
[2016-11-19] MEDS: POTASSIUM CHLORIDE 10 MEQ TABLET.ER PO SCH (21:05)
[2016-11-19] MEDS: FAMOTIDINE 20 MG TABLET PO SCH (21:05)
[2016-11-19] MEDS: CARVEDILOL 3.125 MG TABLET PO SCH (21:05)
[2016-11-19] MEDS: FUROSEMIDE 20 MG/2 ML IV SCH (21:05)
[2016-11-19] MEDS: SODIUM CHLORIDE FLUSH 10ML SYR IVF SCH (21:05)
[2016-11-19] MEDS: HYDROcodone/APAP 5/325 TABLET PO PRN ×2 (21:49→22:55)
[2016-11-20 01:39] VITALS: BP 132/92
[2016-11-20] MEDS ORDERED: ALBUTEROL/IPRATROPIUM 2.5MG/0.5MG, 3 ML NPPB PRN (02:30)
[2016-11-20] MEDS: LEVOTHYROXINE 25 MCG TABLET PO SCH (05:02)
[2016-11-20 05:35] LABS: BLOOD UREA NITROGEN 10 mg/dL (7-18)
[2016-11-20] MEDS: ALBUTEROL/IPRATROPIUM 2.5MG/0.5MG, 3 ML NPPB SCH ×5 (07:00→23:43)
[2016-11-20 07:10] VITALS: BP 129/92
[2016-11-20] MEDS: ONDANSETRON 2MG/ML, 2ML IVP PRN (08:49)
[2016-11-20] MEDS: CARVEDILOL 3.125 MG TABLET PO SCH ×2 (08:54→21:33)
[2016-11-20] MEDS: FAMOTIDINE 20 MG TABLET PO SCH ×2 (08:54→21:33)
[2016-11-20] MEDS: SODIUM CHLORIDE FLUSH 10ML SYR IVF SCH ×2 (08:54→21:33)
[2016-11-20] MEDS: FUROSEMIDE 20 MG/2 ML IV SCH ×2 (08:54→17:54)
[2016-11-20] MEDS: POTASSIUM CHLORIDE 10 MEQ TABLET.ER PO SCH ×3 (08:54→17:54)
[2016-11-20] MEDS: OXYBUTYNIN CHLORIDE 5 MG TABLET PO SCH ×3 (08:54→21:33)
[2016-11-20] MEDS: SPIRONOLACTONE 25 MG TABLET PO SCH (08:54)
[2016-11-20 09:11] VITALS: BP 131/93
[2016-11-20 12:35] VITALS: BP 130/91
[2016-11-20 18:43] VITALS: BP 123/77
[2016-11-20] MEDS: RIVAROXABAN 10 MG TABLET PO SCH (21:00)
[2016-11-20] MEDS: CEFTRIAXONE PMX 1GM/50ML 50 ML IV SCH (21:33)
[2016-11-21 02:51] VITALS: BP 118/87
[2016-11-21 04:45] LABS: BLOOD UREA NITROGEN 12 mg/dL (7-18)
[2016-11-21] MEDS: LEVOTHYROXINE 25 MCG TABLET PO SCH (05:19)
[2016-11-21] MEDS: ALBUTEROL/IPRATROPIUM 2.5MG/0.5MG, 3 ML NPPB SCH ×3 (06:50→20:45)
[2016-11-21] MEDS: FUROSEMIDE 20 MG/2 ML IV SCH ×2 (07:57→17:42)
[2016-11-21 08:02] VITALS: BP 126/94
[2016-11-21] MEDS: SPIRONOLACTONE 25 MG TABLET PO SCH (08:03)
[2016-11-21] MEDS: POTASSIUM CHLORIDE 10 MEQ TABLET.ER PO SCH ×3 (08:04→17:43)
[2016-11-21] MEDS: SODIUM CHLORIDE FLUSH 10ML SYR IVF SCH ×2 (08:04→20:35)
[2016-11-21] MEDS: FAMOTIDINE 20 MG TABLET PO SCH ×2 (08:04→20:34)
[2016-11-21] MEDS: CARVEDILOL 3.125 MG TABLET PO SCH ×2 (08:05→20:34)
[2016-11-21] MEDS: OXYBUTYNIN CHLORIDE 5 MG TABLET PO SCH ×3 (08:05→20:34)
[2016-11-21] MEDS ORDERED: MAGNESIUM SULFATE PMX 2GM/50ML 50 ML IV ONE (09:00)
[2016-11-21] MEDS: MULTIVITAMIN 1 TABLET PO SCH (10:38)
[2016-11-21] MEDS: MAGNESIUM CHLORIDE 64 MG TABLET.DR PO SCH ×2 (10:38→20:33)
[2016-11-21] MEDS: HYDROcodone/APAP 5/325 TABLET PO PRN ×2 (11:03→20:33)
[2016-11-21 14:15] VITALS: BP 120/86
[2016-11-21 14:26] VITALS: BP 120/86
[2016-11-21 19:24] VITALS: BP 130/92
[2016-11-21] MEDS: CEFTRIAXONE PMX 1GM/50ML 50 ML IV SCH (20:33)
[2016-11-21] MEDS: RIVAROXABAN 10 MG TABLET PO SCH (20:36)
[2016-11-22 02:35] VITALS: BP 118/82
[2016-11-22] MEDS: HYDROcodone/APAP 5/325 TABLET PO PRN ×2 (03:18→23:17)
[2016-11-22] MEDS: LEVOTHYROXINE 25 MCG TABLET PO SCH (05:15)
[2016-11-22] MEDS: ALBUTEROL/IPRATROPIUM 2.5MG/0.5MG, 3 ML NPPB SCH ×4 (07:00→20:00)
[2016-11-22 07:10] VITALS: BP 110/76
[2016-11-22] MEDS: SODIUM CHLORIDE FLUSH 10ML SYR IVF SCH ×2 (09:00→20:13)
[2016-11-22] MEDS: FUROSEMIDE 20 MG/2 ML IV SCH (09:17)
[2016-11-22] MEDS: CARVEDILOL 3.125 MG TABLET PO SCH ×2 (09:18→20:13)
[2016-11-22] MEDS: OXYBUTYNIN CHLORIDE 5 MG TABLET PO SCH ×3 (09:18→20:13)
[2016-11-22] MEDS: SPIRONOLACTONE 25 MG TABLET PO SCH (09:18)
[2016-11-22] MEDS: POTASSIUM CHLORIDE 10 MEQ TABLET.ER PO SCH (09:18)
[2016-11-22] MEDS: FAMOTIDINE 20 MG TABLET PO SCH ×2 (09:18→20:13)
[2016-11-22] MEDS: MULTIVITAMIN 1 TABLET PO SCH (09:19)
[2016-11-22] MEDS: MAGNESIUM CHLORIDE 64 MG TABLET.DR PO SCH ×2 (09:19→20:13)
[2016-11-22] MEDS: ONDANSETRON 2MG/ML, 2ML IVP PRN (09:32)
[2016-11-22 12:08] VITALS: BP 105/71
[2016-11-22] MEDS: PHENAZOPYRIDINE 100 MG TABLET PO SCH ×3 (13:00→20:13)
[2016-11-22] MEDS: LACTOBACILLUS 1GM/ PACKET PO SCH ×3 (13:00→20:12)
[2016-11-22] MEDS: FUROSEMIDE 20 MG TABLET PO SCH (17:30)
[2016-11-22 20:10] VITALS: BP 116/86
[2016-11-22] MEDS: CEFTRIAXONE PMX 1GM/50ML 50 ML IV SCH (20:12)
[2016-11-22] MEDS: RIVAROXABAN 10 MG TABLET PO SCH (20:14)
[2016-11-23 02:00] VITALS: BP 117/87
[2016-11-23 03:39] VITALS: BP 126/84
[2016-11-23 05:09] LABS: BLOOD UREA NITROGEN 16 mg/dL (7-18)
[2016-11-23] MEDS: LEVOTHYROXINE 25 MCG TABLET PO SCH (06:00)
[2016-11-23] MEDS: ALBUTEROL/IPRATROPIUM 2.5MG/0.5MG, 3 ML NPPB SCH ×3 (07:00→15:00)
[2016-11-23] MEDS ORDERED: POTASSIUM CHLORIDE 20 MEQ TAB.ER.PRT PO SCH (08:00)
[2016-11-23 08:45] VITALS: BP 123/91
[2016-11-23] MEDS: SODIUM CHLORIDE FLUSH 10ML SYR IVF SCH (09:00)
[2016-11-23] MEDS: OXYBUTYNIN CHLORIDE 5 MG TABLET PO SCH (09:04)
[2016-11-23] MEDS: FAMOTIDINE 20 MG TABLET PO SCH (09:04)
[2016-11-23] MEDS: MULTIVITAMIN 1 TABLET PO SCH (09:04)
[2016-11-23] MEDS: LACTOBACILLUS 1GM/ PACKET PO SCH (09:04)
[2016-11-23] MEDS: PHENAZOPYRIDINE 100 MG TABLET PO SCH (09:05)
[2016-11-23] MEDS: MAGNESIUM CHLORIDE 64 MG TABLET.DR PO SCH (09:05)
[2016-11-23] MEDS: SPIRONOLACTONE 25 MG TABLET PO SCH (09:05)
[2016-11-23] MEDS: CARVEDILOL 3.125 MG TABLET PO SCH (09:05)
[2016-11-23] MEDS: FUROSEMIDE 20 MG TABLET PO SCH (09:05)
[2016-11-23] MEDS ORDERED: MULT1TAB60 PO (10:41)
[2016-11-23] MEDS ORDERED: PHEN-490 PO (10:41)
[2016-11-23] MEDS ORDERED: MAGN64TA9 PO (10:41)
[2016-11-23] MEDS ORDERED: OXYB5TAB7 PO (10:41)
[2016-11-23] MEDS ORDERED: IPRA3AMP NPPB (10:41)
[2016-11-23] MEDS ORDERED: FAMO20TA7 PO (10:41)
[2016-11-23] MEDS ORDERED: ACID1GRA2 PO (10:41)
[2016-11-23] MEDS ORDERED: FURO20TA3 PO (10:41)
[2016-11-23] MEDS ORDERED: POTA20TA6 PO (10:41)
[2016-11-23] MEDS ORDERED: CEFD300C37 PO (10:46)
[2016-11-23 13:20] VITALS: BP 127/86
== END 2016-11-23 16:36 | disposition home or self-care (01) | DRG 291 ==
LOC: ED 16:50 → EDIP 16:51 → 4WST 18:42 → DCLOUNGE 11-23 16:17
PROVIDERS: ADMIT Internal Medicine; ATTEND Internal Medicine
DX: I11.0 Hypertensive heart disease with heart failure (principal); J96.21 Acute and chronic respiratory failure with hypoxia; E43 Unspecified severe protein-calorie malnutrition; N39.0 Urinary tract infection, site not specified; I50.43 Acute on chronic combined systolic (congestive) and diastolic (congestive) heart failure; E83.42 Hypomagnesemia; E03.9 Hypothyroidism, unspecified; I07.1 Rheumatic tricuspid insufficiency; I48.91 Unspecified atrial fibrillation; J44.9 Chronic obstructive pulmonary disease, unspecified; M71.21 Synovial cyst of popliteal space [Baker], right knee; M54.9 Dorsalgia, unspecified; G89.29 Other chronic pain; R53.81 Other malaise; R11.0 Nausea; R10.30 Lower abdominal pain, unspecified; Z80.0 Family history of malignant neoplasm of digestive organs; Z79.01 Long term (current) use of anticoagulants; Z87.891 Personal history of nicotine dependence; Z95.0 Presence of cardiac pacemaker; Z93.3 Colostomy status; Z82.61 Family history of arthritis; Z79.899 Other long term (current) drug therapy
CPT/HCPCS: 36415; 71010; 80048; 80053; 81001; 83605; 83735; 83880; 84439; 84443; 84481; 84484; 85025; 85610; 87040; 93005; 93970; 94640; 96374; 96375; J0696; J1940; J2405; J7613; J7620; J2060; J2930; J3475

== ENCOUNTER 2017-03-14 18:12 | Inpatient (IN) | payer BC, MEDICARE ==
[~2017-03-14] VITALS: Ht 167.6 cm; Wt 63.2 kg
[~2017-03-14 18:12] MED LIST changes: +ACID1GRA3 PO; +CEFD300C37 PO; +FAMO20TA7 PO; -HYDR-3138 PO; +HYDR-3237 PO; +MAGN64TA9 PO; +MULT1TAB60 PO; +OXYB5TAB7 PO; +PHEN-582 PO; +POTA20TA6 PO
[2017-03-14] MEDS ORDERED: SODIUM CHLORIDE FLUSH 10ML SYR IVF ONE (19:30)
[2017-03-14] MEDS ORDERED: ASPIRIN 81 MG TABLET CHEW PO ONE (19:30)
[2017-03-14] MEDS ORDERED: LEVO100T5 PO (19:33)
[2017-03-14] MEDS ORDERED: APIX5TAB PO (19:33)
[2017-03-14] MEDS ORDERED: ASPIRIN 81 MG TABLET CHEW ONE (19:45)
[2017-03-14 19:56] LABS: HEMATOCRIT 41.8 % (34.6-47.8); HEMOGLOBIN 13.1 g/dL (11.7-16.4); WHITE BLOOD COUNT 7.1 x10^3/uL (3.4-10)
[2017-03-14 20:03] LABS: BLOOD UREA NITROGEN 17 mg/dL (7-18)
[2017-03-14 20:07] LABS: IS PT STATUS REG ER OR PRE ER? YES
[2017-03-14] MEDS ORDERED: FUROSEMIDE 40 MG/4 ML IV ONE (20:30)
[2017-03-14] MEDS ORDERED: POTASSIUM CHLORIDE 40 MEQ in SODIUM CHLORIDE 0.9% 500 ML IV ONE (20:30)
[2017-03-14] MEDS ORDERED: FUROSEMIDE 40 MG/4 ML ONE (20:44)
[2017-03-14] MEDS ORDERED: FUROSEMIDE 20 MG/2 ML ONE (20:44)
[2017-03-14] MEDS ORDERED: LORazepam 2 MG/ML, 1ML ONE (21:10)
[2017-03-14] MEDS ORDERED: MORPHINE SULFATE 4 MG/ML, 1ML ONE (22:45)
[2017-03-14] MEDS: MORPHINE SULFATE 4 MG/ML, 1ML IVPush PRN (23:08)
[2017-03-15] MEDS ORDERED: DOCUSATE 100 MG CAPSULE PO PRN (02:00)
[2017-03-15] MEDS ORDERED: BISACODYL 10 MG SUPP PR PRN (02:00)
[2017-03-15] MEDS ORDERED: ACETAMINOPHEN 325 MG TABLET PO PRN (02:00)
[2017-03-15] MEDS ORDERED: POLYETHYLENE GLYCOL 17 GM PACKET PO PRN (02:00)
[2017-03-15] MEDS ORDERED: MORPHINE SULFATE 4 MG/ML, 1ML ONE (02:54)
[2017-03-15] MEDS: MORPHINE SULFATE 4 MG/ML, 1ML IVPush PRN ×4 (02:58→22:19)
[2017-03-15 05:07] LABS: HEMATOCRIT 41.9 % (34.6-47.8); HEMOGLOBIN 13.1 g/dL (11.7-16.4)
[2017-03-15 05:19] LABS: BLOOD UREA NITROGEN 16 mg/dL (7-18)
[2017-03-15 05:40] LABS: IS PT STATUS REG ER OR PRE ER? YES
[2017-03-15 05:58] VITALS: BP 126/96
[2017-03-15] MEDS ORDERED: POTASSIUM CHLORIDE 20 MEQ TAB.ER.PRT PO ONE (07:30)
[2017-03-15 07:42] VITALS: BP 131/91
[2017-03-15] MEDS ORDERED: MAGNESIUM SULFATE PMX 4GM/100M 100 ML IV ONE (10:00)
[2017-03-15 10:07] VITALS: BP 112/80
[2017-03-15] MEDS: FAMOTIDINE 20 MG TABLET PO SCH ×2 (10:54→22:12)
[2017-03-15] MEDS: THIAMINE 100MG TABLET PO SCH (10:54)
[2017-03-15] MEDS: FOLIC ACID 1 MG TABLET PO SCH (10:54)
[2017-03-15] MEDS: APIXABAN 5 MG TABLET PO SCH ×2 (10:54→22:12)
[2017-03-15] MEDS: LEVOTHYROXINE 100 MCG TABLET PO SCH (10:54)
[2017-03-15] MEDS: CARVEDILOL 3.125 MG TABLET PO SCH ×2 (10:55→22:13)
[2017-03-15] MEDS: SPIRONOLACTONE 25 MG TABLET PO SCH (10:55)
[2017-03-15] MEDS: FUROSEMIDE 40 MG/4 ML IV SCH ×2 (10:59→16:58)
[2017-03-15 13:24] VITALS: BP 125/89
[2017-03-15 18:33] VITALS: BP 139/92
[2017-03-16 00:55] VITALS: BP 111/77
[2017-03-16] MEDS: MORPHINE SULFATE 4 MG/ML, 1ML IVPush PRN ×2 (02:33→06:37)
[2017-03-16 05:28] LABS: BLOOD UREA NITROGEN 16 mg/dL (7-18); HEMATOCRIT 41.2 % (34.6-47.8); HEMOGLOBIN 12.8 g/dL (11.7-16.4); WHITE BLOOD COUNT 6.9 x10^3/uL (3.4-10)
[2017-03-16 05:31] LABS: ASPARTATE AMINO TRANSFERASE 23 U/L (15-37)
[2017-03-16 07:28] VITALS: BP 127/87
[2017-03-16] MEDS: FAMOTIDINE 20 MG TABLET PO SCH ×2 (08:49→20:26)
[2017-03-16] MEDS: SPIRONOLACTONE 25 MG TABLET PO SCH (08:49)
[2017-03-16] MEDS: THIAMINE 100MG TABLET PO SCH (08:49)
[2017-03-16] MEDS: FOLIC ACID 1 MG TABLET PO SCH (08:49)
[2017-03-16] MEDS: LEVOTHYROXINE 100 MCG TABLET PO SCH (08:50)
[2017-03-16] MEDS: APIXABAN 5 MG TABLET PO SCH ×2 (08:50→20:26)
[2017-03-16] MEDS: FUROSEMIDE 40 MG/4 ML IV SCH (08:50)
[2017-03-16] MEDS: CARVEDILOL 3.125 MG TABLET PO SCH ×2 (08:50→20:26)
[2017-03-16] MEDS ORDERED: POTASSIUM CHLORIDE 20 MEQ TAB.ER.PRT PO ONE (09:00)
[2017-03-16 12:58] VITALS: BP 125/87
[2017-03-16] MEDS: OXYcodone IR 5MG TABLET PO PRN (14:35)
[2017-03-16 20:06] VITALS: BP 130/95
[2017-03-17 02:10] VITALS: BP 131/90
[2017-03-17] MEDS: OXYcodone IR 5MG TABLET PO PRN ×4 (04:15→23:37)
[2017-03-17 05:27] LABS: HEMATOCRIT 42.9 % (34.6-47.8); HEMOGLOBIN 13.1 g/dL (11.7-16.4); WHITE BLOOD COUNT 6.5 x10^3/uL (3.4-10)
[2017-03-17 05:34] LABS: BLOOD UREA NITROGEN 16 mg/dL (7-18)
[2017-03-17 07:32] VITALS: BP 116/80
[2017-03-17] MEDS: SPIRONOLACTONE 25 MG TABLET PO SCH (08:52)
[2017-03-17] MEDS: FOLIC ACID 1 MG TABLET PO SCH (08:53)
[2017-03-17] MEDS: CARVEDILOL 3.125 MG TABLET PO SCH ×2 (08:53→20:36)
[2017-03-17] MEDS: THIAMINE 100MG TABLET PO SCH (08:53)
[2017-03-17] MEDS: APIXABAN 5 MG TABLET PO SCH ×2 (08:53→20:36)
[2017-03-17] MEDS: FAMOTIDINE 20 MG TABLET PO SCH ×2 (08:53→20:36)
[2017-03-17] MEDS: LEVOTHYROXINE 100 MCG TABLET PO SCH (08:53)
[2017-03-17] MEDS ORDERED: FUROSEMIDE 40 MG/4 ML IV SCH (09:00)
[2017-03-17 12:46] VITALS: BP 140/94
[2017-03-17 20:17] VITALS: BP 125/85
[2017-03-17 20:40] VITALS: BP 125/76
[2017-03-18 01:51] VITALS: BP 122/72
[2017-03-18 05:37] LABS: BLOOD UREA NITROGEN 16 mg/dL (7-18)
[2017-03-18 07:27] VITALS: BP 126/89
[2017-03-18] MEDS: FAMOTIDINE 20 MG TABLET PO SCH ×2 (09:05→19:38)
[2017-03-18] MEDS: APIXABAN 5 MG TABLET PO SCH ×2 (09:05→19:39)
[2017-03-18] MEDS: CARVEDILOL 3.125 MG TABLET PO SCH ×2 (09:05→19:39)
[2017-03-18] MEDS: FUROSEMIDE 20 MG/2 ML IV SCH (09:05)
[2017-03-18] MEDS: FOLIC ACID 1 MG TABLET PO SCH (09:05)
[2017-03-18] MEDS: THIAMINE 100MG TABLET PO SCH (09:05)
[2017-03-18] MEDS: LEVOTHYROXINE 100 MCG TABLET PO SCH (09:05)
[2017-03-18] MEDS: SPIRONOLACTONE 25 MG TABLET PO SCH (09:05)
[2017-03-18] MEDS: OXYcodone IR 5MG TABLET PO PRN ×4 (10:28→23:32)
[2017-03-18 13:11] VITALS: BP 120/90
[2017-03-18] MEDS ORDERED: BISACODYL 10 MG SUPP PR PRN (14:30)
[2017-03-18] MEDS ORDERED: DOCUSATE 100 MG CAPSULE PO PRN (14:30)
[2017-03-18] MEDS ORDERED: ACETAMINOPHEN 325 MG TABLET PO PRN (14:30)
[2017-03-18] MEDS ORDERED: POLYETHYLENE GLYCOL 17 GM PACKET PO PRN (14:30)
[2017-03-18 18:52] VITALS: BP 126/91
[2017-03-19 00:44] VITALS: BP 125/87
[2017-03-19 05:23] LABS: HEMATOCRIT 43.4 % (34.6-47.8); HEMOGLOBIN 13.4 g/dL (11.7-16.4); WHITE BLOOD COUNT 5.6 x10^3/uL (3.4-10)
[2017-03-19 05:29] LABS: ASPARTATE AMINO TRANSFERASE 27 U/L (15-37); BLOOD UREA NITROGEN 17 mg/dL (7-18)
[2017-03-19 08:08] VITALS: BP 135/94
[2017-03-19] MEDS: ONDANSETRON 2MG/ML, 2ML IVPush PRN (10:13)
[2017-03-19] MEDS: FUROSEMIDE 20 MG/2 ML IV SCH (10:13)
[2017-03-19] MEDS: SPIRONOLACTONE 25 MG TABLET PO SCH (10:14)
[2017-03-19] MEDS: FOLIC ACID 1 MG TABLET PO SCH (10:14)
[2017-03-19] MEDS: CARVEDILOL 3.125 MG TABLET PO SCH ×2 (10:14→20:12)
[2017-03-19] MEDS: APIXABAN 5 MG TABLET PO SCH ×2 (10:14→20:12)
[2017-03-19] MEDS: FAMOTIDINE 20 MG TABLET PO SCH ×2 (10:14→20:12)
[2017-03-19] MEDS: LEVOTHYROXINE 100 MCG TABLET PO SCH (10:15)
[2017-03-19] MEDS: THIAMINE 100MG TABLET PO SCH (10:15)
[2017-03-19] MEDS: OXYcodone IR 5MG TABLET PO PRN ×2 (10:16→23:14)
[2017-03-19 14:42] VITALS: BP 112/79
[2017-03-19 19:17] VITALS: BP 112/80
[2017-03-20 01:15] VITALS: BP 118/78
[2017-03-20] MEDS: ONDANSETRON 2MG/ML, 2ML IVPush PRN (03:43)
[2017-03-20 05:01] LABS: HEMATOCRIT 43.7 % (34.6-47.8); HEMOGLOBIN 13.3 g/dL (11.7-16.4); WHITE BLOOD COUNT 7.2 x10^3/uL (3.4-10)
[2017-03-20 05:17] LABS: ASPARTATE AMINO TRANSFERASE 25 U/L (15-37); BLOOD UREA NITROGEN 17 mg/dL (7-18)
[2017-03-20] MEDS ORDERED: FOLI-17 PO (06:47)
[2017-03-20] MEDS ORDERED: THIA100T6 PO (06:47)
[2017-03-20 07:08] VITALS: BP 134/91
[2017-03-20] MEDS ORDERED: FAMOTIDINE 20 MG/2 ML IVPush ONE (09:30)
[2017-03-20] MEDS ORDERED: MAALOX/HYOSCYAMINE/LIDOCAINE 45 ML BTL PO ONE (09:30)
[2017-03-20] MEDS ORDERED: MAGNESIUM SULFATE PMX 2GM/50ML 50 ML IV ONE (09:30)
[2017-03-20] MEDS: APIXABAN 5 MG TABLET PO SCH ×2 (10:17→21:24)
[2017-03-20] MEDS: FOLIC ACID 1 MG TABLET PO SCH (10:17)
[2017-03-20] MEDS: FAMOTIDINE 20 MG TABLET PO SCH ×2 (10:17→21:24)
[2017-03-20] MEDS: SPIRONOLACTONE 25 MG TABLET PO SCH (10:17)
[2017-03-20] MEDS: THIAMINE 100MG TABLET PO SCH (10:17)
[2017-03-20] MEDS: LEVOTHYROXINE 100 MCG TABLET PO SCH (10:17)
[2017-03-20] MEDS: CARVEDILOL 3.125 MG TABLET PO SCH ×2 (10:17→21:24)
[2017-03-20 12:53] VITALS: BP 116/83
[2017-03-20] MEDS: OXYcodone IR 5MG TABLET PO PRN ×2 (18:31→23:19)
[2017-03-20 19:04] VITALS: BP 123/87
[2017-03-21 01:11] VITALS: BP 118/87
[2017-03-21 05:19] LABS: HEMATOCRIT 41.1 % (34.6-47.8); HEMOGLOBIN 12.9 g/dL (11.7-16.4); WHITE BLOOD COUNT 6.4 x10^3/uL (3.4-10)
[2017-03-21 05:23] LABS: BLOOD UREA NITROGEN 20 mg/dL (7-18)
[2017-03-21 05:54] LABS: DIFF TOTAL CELLS COUNTED 100 CELL DIFF
[2017-03-21 05:55] LABS: ANISOCYTOSIS 1+; VERIFY COUNTS? YES
[2017-03-21 05:56] LABS: OVALOCYTES 1+; POIKILOCYTOSIS 2+; POLYCHROMASIA 1+
[2017-03-21 05:57] LABS: HYPOCHROMIA 2+
[2017-03-21 08:39] VITALS: BP 129/91
[2017-03-21] MEDS: FOLIC ACID 1 MG TABLET PO SCH (09:16)
[2017-03-21] MEDS: APIXABAN 5 MG TABLET PO SCH ×2 (09:16→21:16)
[2017-03-21] MEDS: LEVOTHYROXINE 100 MCG TABLET PO SCH (09:17)
[2017-03-21] MEDS: CARVEDILOL 3.125 MG TABLET PO SCH ×2 (09:17→21:16)
[2017-03-21] MEDS: THIAMINE 100MG TABLET PO SCH (09:17)
[2017-03-21] MEDS: FAMOTIDINE 20 MG TABLET PO SCH ×2 (09:17→21:16)
[2017-03-21] MEDS: SPIRONOLACTONE 25 MG TABLET PO SCH (09:17)
[2017-03-21 12:20] VITALS: BP 113/62
[2017-03-21] MEDS: OXYcodone IR 5MG TABLET PO PRN ×3 (12:21→23:28)
[2017-03-21 16:54] VITALS: BP 121/87
[2017-03-21 19:18] VITALS: BP 132/93
[2017-03-21] MEDS: ONDANSETRON 2MG/ML, 2ML IVPush PRN (19:52)
[2017-03-22 01:33] VITALS: BP 120/77
[2017-03-22 04:52] VITALS: BP 119/87
[2017-03-22 05:24] LABS: HEMATOCRIT 40.9 % (34.6-47.8); HEMOGLOBIN 12.9 g/dL (11.7-16.4); WHITE BLOOD COUNT 6.1 x10^3/uL (3.4-10)
[2017-03-22 05:35] LABS: BLOOD UREA NITROGEN 15 mg/dL (7-18)
[2017-03-22] MEDS ORDERED: MAGNESIUM SULFATE PMX 2GM/50ML 50 ML IV ONE (07:30)
[2017-03-22] MEDS: LEVOTHYROXINE 100 MCG TABLET PO SCH (08:49)
[2017-03-22 09:15] VITALS: BP 121/84
[2017-03-22] MEDS ORDERED: PEDS NS BOLUS IV.SOLN 20ML/KG IVBOLUS ONE (09:30)
[2017-03-22 09:50] VITALS: BP 122/86
[2017-03-22] MEDS: APIXABAN 5 MG TABLET PO SCH ×2 (10:34→21:14)
[2017-03-22] MEDS: FOLIC ACID 1 MG TABLET PO SCH (10:34)
[2017-03-22] MEDS: THIAMINE 100MG TABLET PO SCH (10:34)
[2017-03-22] MEDS: LISINOPRIL 5 MG TABLET PO SCH ×2 (10:34→21:00)
[2017-03-22] MEDS: MAGNESIUM OXIDE 400 MG TABLET PO SCH (10:34)
[2017-03-22] MEDS: CARVEDILOL 6.25 MG TABLET PO SCH ×2 (10:34→21:00)
[2017-03-22] MEDS: SPIRONOLACTONE 25 MG TABLET PO SCH (10:34)
[2017-03-22 10:44] LABS: IS PT STATUS REG ER OR PRE ER? NO
[2017-03-22] MEDS: FUROSEMIDE 20 MG TABLET PO SCH (12:00)
[2017-03-22] MEDS ORDERED: ALBUTEROL SULFATE 2.5 MG/3 ML NPPB PRN (13:30)
[2017-03-22] MEDS ORDERED: ALBU1.25 NEB (14:08)
[2017-03-22 15:20] VITALS: BP 92/70
[2017-03-22 15:49] LABS: IS PT STATUS REG ER OR PRE ER? NO
[2017-03-22] MEDS: ONDANSETRON 2MG/ML, 2ML IVPush PRN (20:13)
[2017-03-22 20:34] VITALS: BP 86/59
[2017-03-22] MEDS: ALBUTEROL SULFATE 2.5 MG/3 ML NPPB SCH (20:39)
[2017-03-22] MEDS: ATORVASTATIN 20 MG TABLET PO SCH (21:14)
[2017-03-23 01:21] VITALS: BP 82/62
[2017-03-23] MEDS: ONDANSETRON 2MG/ML, 2ML IVPush PRN ×2 (04:41→08:36)
[2017-03-23 05:20] LABS: HEMATOCRIT 44.2 % (34.6-47.8); WHITE BLOOD COUNT 6.8 x10^3/uL (3.4-10)
[2017-03-23 05:21] LABS: ASPARTATE AMINO TRANSFERASE 26 U/L (15-37); BLOOD UREA NITROGEN 16 mg/dL (7-18)
[2017-03-23] MEDS: LEVOTHYROXINE 100 MCG TABLET PO SCH (06:06)
[2017-03-23] MEDS: ALBUTEROL SULFATE 2.5 MG/3 ML NPPB SCH ×2 (07:45→21:05)
[2017-03-23] MEDS ORDERED: REGADENOSON 0.4 MG/5 ML SYRINGE ONE (08:15)
[2017-03-23] MEDS ORDERED: SCOPOLAMINE PATCH, 1.5MG PATCH.TD72 TD ONE (09:00)
[2017-03-23 09:49] VITALS: BP 109/80
[2017-03-23] MEDS: LISINOPRIL 5 MG TABLET PO SCH ×2 (10:18→21:00)
[2017-03-23] MEDS: CARVEDILOL 6.25 MG TABLET PO SCH ×2 (10:20→21:00)
[2017-03-23] MEDS: APIXABAN 5 MG TABLET PO SCH ×2 (10:20→23:02)
[2017-03-23] MEDS: FOLIC ACID 1 MG TABLET PO SCH (10:21)
[2017-03-23] MEDS: FUROSEMIDE 20 MG TABLET PO SCH (10:22)
[2017-03-23] MEDS: SPIRONOLACTONE 25 MG TABLET PO SCH (10:22)
[2017-03-23] MEDS: THIAMINE 100MG TABLET PO SCH (10:25)
[2017-03-23] MEDS: MAGNESIUM OXIDE 400 MG TABLET PO SCH (10:26)
[2017-03-23] MEDS ORDERED: FURO20TA3 PO (14:43)
[2017-03-23] MEDS ORDERED: CARV6.2512 PO (14:43)
[2017-03-23] MEDS ORDERED: LISI5TAB7 PO (14:43)
[2017-03-23] MEDS ORDERED: ATOR20TA9 PO (14:43)
[2017-03-23 14:58] VITALS: BP_SYST 86; BP_SYST 88; BP_DIAS 58; BP_DIAS 64
[2017-03-23 22:15] VITALS: BP 101/70
[2017-03-23] MEDS: DRONABINOL 2.5 MG CAPSULE PO SCH (23:01)
[2017-03-23] MEDS: ATORVASTATIN 20 MG TABLET PO SCH (23:02)
[2017-03-24 03:21] VITALS: BP 95/67
[2017-03-24 05:13] LABS: HEMATOCRIT 41.4 % (34.6-47.8); HEMOGLOBIN 13.1 g/dL (11.7-16.4); WHITE BLOOD COUNT 6.4 x10^3/uL (3.4-10)
[2017-03-24 05:14] LABS: BLOOD UREA NITROGEN 16 mg/dL (7-18)
[2017-03-24] MEDS: LEVOTHYROXINE 100 MCG TABLET PO SCH (05:21)
[2017-03-24 07:59] VITALS: BP 108/64
[2017-03-24] MEDS: ALBUTEROL SULFATE 2.5 MG/3 ML NPPB SCH ×2 (09:10→20:32)
[2017-03-24] MEDS: FUROSEMIDE 20 MG TABLET PO SCH (09:50)
[2017-03-24] MEDS: LISINOPRIL 5 MG TABLET PO SCH ×2 (09:50→20:58)
[2017-03-24] MEDS: FOLIC ACID 1 MG TABLET PO SCH (09:50)
[2017-03-24] MEDS: APIXABAN 5 MG TABLET PO SCH ×2 (09:50→20:59)
[2017-03-24] MEDS: THIAMINE 100MG TABLET PO SCH (09:50)
[2017-03-24] MEDS: DRONABINOL 2.5 MG CAPSULE PO SCH ×2 (09:50→20:58)
[2017-03-24] MEDS: MAGNESIUM OXIDE 400 MG TABLET PO SCH (09:50)
[2017-03-24] MEDS: CARVEDILOL 6.25 MG TABLET PO SCH ×2 (09:51→20:59)
[2017-03-24 12:50] VITALS: BP 91/62
[2017-03-24] MEDS: ONDANSETRON 2MG/ML, 2ML IVPush PRN (12:53)
[2017-03-24 20:02] VITALS: BP 95/70
[2017-03-24] MEDS: ATORVASTATIN 20 MG TABLET PO SCH (20:59)
[2017-03-24 23:59] VITALS: BP 76/35
[2017-03-25 00:22] LABS: ABG COLLECTION SITE RIGHT BRACHIAL
[2017-03-25 01:53] VITALS: BP 92/63
[2017-03-25 02:03] VITALS: BP 95/68
[2017-03-25] MEDS ORDERED: SODIUM CHLORIDE 0.9%, 250ML IVBOLUS ONE ×2 (03:30)
[2017-03-25] MEDS ORDERED: SODIUM CHLORIDE 0.9%, 500ML IVBOLUS ONE (03:30)
[2017-03-25 05:06] VITALS: BP 107/75
[2017-03-25] MEDS: ONDANSETRON 2MG/ML, 2ML IVPush PRN (05:12)
[2017-03-25] MEDS: LEVOTHYROXINE 100 MCG TABLET PO SCH (05:12)
[2017-03-25 08:41] VITALS: BP 92/65
[2017-03-25] MEDS: DRONABINOL 2.5 MG CAPSULE PO SCH ×2 (08:43→20:41)
[2017-03-25] MEDS: FUROSEMIDE 20 MG TABLET PO SCH (08:43)
[2017-03-25] MEDS: MAGNESIUM OXIDE 400 MG TABLET PO SCH (08:43)
[2017-03-25] MEDS: THIAMINE 100MG TABLET PO SCH (08:43)
[2017-03-25] MEDS: CARVEDILOL 6.25 MG TABLET PO SCH ×2 (08:43→20:35)
[2017-03-25] MEDS: LISINOPRIL 5 MG TABLET PO SCH ×2 (08:44→20:36)
[2017-03-25] MEDS: FOLIC ACID 1 MG TABLET PO SCH (08:44)
[2017-03-25] MEDS: APIXABAN 5 MG TABLET PO SCH ×2 (08:44→20:41)
[2017-03-25] MEDS: ALBUTEROL SULFATE 2.5 MG/3 ML NPPB SCH ×2 (10:11→20:52)
[2017-03-25 12:51] VITALS: BP 101/73
[2017-03-25 18:35] VITALS: BP 91/60
[2017-03-25] MEDS: ATORVASTATIN 20 MG TABLET PO SCH (20:41)
[2017-03-26 01:33] VITALS: BP 109/79
[2017-03-26] MEDS: LEVOTHYROXINE 100 MCG TABLET PO SCH (05:27)
[2017-03-26 06:40] VITALS: BP 114/86
[2017-03-26] MEDS: FUROSEMIDE 20 MG TABLET PO SCH (08:04)
[2017-03-26] MEDS: THIAMINE 100MG TABLET PO SCH (08:04)
[2017-03-26] MEDS: DRONABINOL 2.5 MG CAPSULE PO SCH ×2 (08:04→22:07)
[2017-03-26] MEDS: MAGNESIUM OXIDE 400 MG TABLET PO SCH (08:04)
[2017-03-26] MEDS: APIXABAN 5 MG TABLET PO SCH ×2 (08:04→22:08)
[2017-03-26] MEDS: FOLIC ACID 1 MG TABLET PO SCH (08:04)
[2017-03-26] MEDS: LISINOPRIL 5 MG TABLET PO SCH ×2 (08:06→22:07)
[2017-03-26] MEDS: CARVEDILOL 6.25 MG TABLET PO SCH ×2 (08:06→22:08)
[2017-03-26] MEDS: ALBUTEROL SULFATE 2.5 MG/3 ML NPPB SCH ×2 (09:00→21:37)
[2017-03-26 12:07] VITALS: BP 117/87
[2017-03-26 20:03] VITALS: BP 119/85
[2017-03-26 21:50] VITALS: BP 132/90
[2017-03-26] MEDS: ONDANSETRON 2MG/ML, 2ML IVPush PRN (22:06)
[2017-03-26] MEDS: ATORVASTATIN 20 MG TABLET PO SCH (22:07)
[2017-03-27 01:37] VITALS: BP 99/72
[2017-03-27] MEDS: LEVOTHYROXINE 100 MCG TABLET PO SCH (05:40)
[2017-03-27 07:45] VITALS: BP 114/79
[2017-03-27] MEDS: MAGNESIUM OXIDE 400 MG TABLET PO SCH (08:10)
[2017-03-27] MEDS: THIAMINE 100MG TABLET PO SCH (08:10)
[2017-03-27] MEDS: LISINOPRIL 5 MG TABLET PO SCH ×2 (08:11→21:47)
[2017-03-27] MEDS: DRONABINOL 2.5 MG CAPSULE PO SCH ×2 (08:11→21:46)
[2017-03-27] MEDS: APIXABAN 5 MG TABLET PO SCH ×2 (08:11→21:47)
[2017-03-27] MEDS: FOLIC ACID 1 MG TABLET PO SCH (08:11)
[2017-03-27] MEDS: CARVEDILOL 6.25 MG TABLET PO SCH ×2 (08:11→21:47)
[2017-03-27] MEDS: FUROSEMIDE 20 MG TABLET PO SCH (08:11)
[2017-03-27] MEDS: ALBUTEROL SULFATE 2.5 MG/3 ML NPPB SCH ×2 (10:09→19:11)
[2017-03-27 13:37] VITALS: BP 115/77
[2017-03-27 21:44] VITALS: BP 104/71
[2017-03-27] MEDS: ATORVASTATIN 20 MG TABLET PO SCH (21:47)
[2017-03-28 01:30] VITALS: BP 100/68
[2017-03-28] MEDS: LEVOTHYROXINE 100 MCG TABLET PO SCH (06:16)
[2017-03-28 08:35] VITALS: BP 92/59
[2017-03-28] MEDS: LISINOPRIL 5 MG TABLET PO SCH ×2 (09:00→21:04)
[2017-03-28] MEDS: FUROSEMIDE 20 MG TABLET PO SCH (09:00)
[2017-03-28] MEDS: CARVEDILOL 6.25 MG TABLET PO SCH ×2 (09:00→21:03)
[2017-03-28] MEDS: ALBUTEROL SULFATE 2.5 MG/3 ML NPPB SCH ×2 (10:30→21:19)
[2017-03-28] MEDS: APIXABAN 5 MG TABLET PO SCH ×2 (10:45→21:03)
[2017-03-28] MEDS: THIAMINE 100MG TABLET PO SCH (10:45)
[2017-03-28] MEDS: DRONABINOL 2.5 MG CAPSULE PO SCH ×2 (10:45→21:04)
[2017-03-28] MEDS: FOLIC ACID 1 MG TABLET PO SCH (10:45)
[2017-03-28] MEDS: MAGNESIUM OXIDE 400 MG TABLET PO SCH (10:45)
[2017-03-28 10:49] LABS: BLOOD UREA NITROGEN 15 mg/dL (7-18)
[2017-03-28 12:32] VITALS: BP 103/72
[2017-03-28 18:43] VITALS: BP 98/64
[2017-03-28 21:02] VITALS: BP 109/75
[2017-03-28] MEDS: ATORVASTATIN 20 MG TABLET PO SCH (21:03)
[2017-03-29 01:09] VITALS: BP 104/68
[2017-03-29] MEDS: LEVOTHYROXINE 100 MCG TABLET PO SCH (05:16)
[2017-03-29 06:28] LABS: HEMATOCRIT 42.5 % (34.6-47.8); HEMOGLOBIN 13.4 g/dL (11.7-16.4); WHITE BLOOD COUNT 8.1 x10^3/uL (3.4-10)
[2017-03-29 06:41] LABS: BLOOD UREA NITROGEN 17 mg/dL (7-18)
[2017-03-29 07:09] VITALS: BP 104/74
[2017-03-29 07:34] LABS: BLOOD UREA NITROGEN 17 mg/dL (7-18)
[2017-03-29] MEDS: CARVEDILOL 6.25 MG TABLET PO SCH ×2 (08:03→20:03)
[2017-03-29] MEDS: MAGNESIUM OXIDE 400 MG TABLET PO SCH (08:03)
[2017-03-29] MEDS: DRONABINOL 2.5 MG CAPSULE PO SCH ×2 (08:03→20:02)
[2017-03-29] MEDS: THIAMINE 100MG TABLET PO SCH (08:03)
[2017-03-29] MEDS: LISINOPRIL 5 MG TABLET PO SCH ×2 (08:03→20:02)
[2017-03-29] MEDS: FUROSEMIDE 20 MG TABLET PO SCH ×2 (08:03→17:28)
[2017-03-29] MEDS: APIXABAN 5 MG TABLET PO SCH ×2 (08:03→20:03)
[2017-03-29] MEDS: FOLIC ACID 1 MG TABLET PO SCH (08:03)
[2017-03-29] MEDS: ONDANSETRON 2MG/ML, 2ML IVPush PRN (08:08)
[2017-03-29] MEDS: ALBUTEROL SULFATE 2.5 MG/3 ML NPPB SCH ×2 (09:00→21:00)
[2017-03-29] MEDS ORDERED: SODIUM CHLORIDE 0.9% 1,000 ML IV SCH (11:00)
[2017-03-29 13:17] VITALS: BP 92/66
[2017-03-29 19:00] VITALS: BP 95/61
[2017-03-29] MEDS: ATORVASTATIN 20 MG TABLET PO SCH (20:02)
[2017-03-30 01:56] VITALS: BP 93/61
[2017-03-30] MEDS: LEVOTHYROXINE 100 MCG TABLET PO SCH (06:09)
[2017-03-30] MEDS ORDERED: SODIUM CHLORIDE 0.9%, 250ML IVBOLUS ONE ×2 (07:00→08:00)
[2017-03-30 07:33] LABS: BLOOD UREA NITROGEN 16 mg/dL (7-18)
[2017-03-30 08:00] VITALS: BP 107/71
[2017-03-30] MEDS: FUROSEMIDE 20 MG TABLET PO SCH ×2 (08:59→17:42)
[2017-03-30] MEDS: ALBUTEROL SULFATE 2.5 MG/3 ML NPPB SCH ×2 (09:00→20:30)
[2017-03-30 09:21] VITALS: BP 105/70
[2017-03-30] MEDS: LISINOPRIL 5 MG TABLET PO SCH ×2 (09:22→21:02)
[2017-03-30] MEDS: MAGNESIUM OXIDE 400 MG TABLET PO SCH (09:23)
[2017-03-30] MEDS: THIAMINE 100MG TABLET PO SCH (09:23)
[2017-03-30] MEDS: FOLIC ACID 1 MG TABLET PO SCH (09:23)
[2017-03-30] MEDS: DRONABINOL 2.5 MG CAPSULE PO SCH ×2 (09:23→21:01)
[2017-03-30] MEDS: CARVEDILOL 6.25 MG TABLET PO SCH ×2 (09:23→21:03)
[2017-03-30] MEDS: APIXABAN 5 MG TABLET PO SCH ×2 (09:23→21:03)
[2017-03-30] MEDS: ONDANSETRON 2MG/ML, 2ML IVPush PRN ×2 (09:28→21:08)
[2017-03-30 13:52] VITALS: BP 101/69
[2017-03-30 14:26] LABS: BLOOD UREA NITROGEN 16 mg/dL (7-18)
[2017-03-30 17:16] VITALS: BP 106/69
[2017-03-30 20:18] VITALS: BP 112/77
[2017-03-30] MEDS: ATORVASTATIN 20 MG TABLET PO SCH (21:02)
[2017-03-31 00:53] VITALS: BP 101/70
[2017-03-31 05:54] LABS: HEMATOCRIT 39.2 % (34.6-47.8); HEMOGLOBIN 12.5 g/dL (11.7-16.4); WHITE BLOOD COUNT 5.7 x10^3/uL (3.4-10)
[2017-03-31] MEDS: LEVOTHYROXINE 100 MCG TABLET PO SCH (06:08)
[2017-03-31 06:15] LABS: ASPARTATE AMINO TRANSFERASE 20 U/L (15-37); BLOOD UREA NITROGEN 16 mg/dL (7-18)
[2017-03-31 07:11] LABS: ANISOCYTOSIS 1+; HYPOCHROMIA 1+; POIKILOCYTOSIS 1+
[2017-03-31 07:12] LABS: OVALOCYTES 1+; STOMATOCYTES 1+
[2017-03-31 07:45] VITALS: BP 105/69
[2017-03-31 08:54] LABS: BLOOD UREA NITROGEN 15 mg/dL (7-18)
[2017-03-31] MEDS: ALBUTEROL SULFATE 2.5 MG/3 ML NPPB SCH (09:14)
[2017-03-31] MEDS: FUROSEMIDE 20 MG TABLET PO SCH (09:28)
[2017-03-31] MEDS: CARVEDILOL 6.25 MG TABLET PO SCH (09:28)
[2017-03-31] MEDS: LISINOPRIL 5 MG TABLET PO SCH (09:29)
[2017-03-31] MEDS: THIAMINE 100MG TABLET PO SCH (09:29)
[2017-03-31] MEDS: APIXABAN 5 MG TABLET PO SCH (09:30)
[2017-03-31] MEDS: MAGNESIUM OXIDE 400 MG TABLET PO SCH (09:30)
[2017-03-31] MEDS: FOLIC ACID 1 MG TABLET PO SCH (09:30)
[2017-03-31] MEDS: ONDANSETRON 2MG/ML, 2ML IVPush PRN (09:35)
[2017-03-31] MEDS: DRONABINOL 2.5 MG CAPSULE PO SCH (09:36)
[2017-03-31 12:27] VITALS: BP 105/72
== END 2017-03-31 14:00 | DRG 291 ==
LOC: ED 23:14 → EDIP 03-15 00:07 → 5SO 03-15 05:56 → 4EST 03-23 21:12 → 4WST 03-24 17:20
PROVIDERS: ADMIT Hospitalist; ATTEND Family Medicine
DX: I11.0 Hypertensive heart disease with heart failure (principal); E43 Unspecified severe protein-calorie malnutrition; I47.2 Ventricular tachycardia; J96.10 Chronic respiratory failure, unspecified whether with hypoxia or hypercapnia; I48.0 Paroxysmal atrial fibrillation; D68.69 Other thrombophilia; R17 Unspecified jaundice; Z99.81 Dependence on supplemental oxygen; E87.1 Hypo-osmolality and hyponatremia; J98.11 Atelectasis; I08.1 Rheumatic disorders of both mitral and tricuspid valves; I50.43 Acute on chronic combined systolic (congestive) and diastolic (congestive) heart failure; E87.6 Hypokalemia; Z68.22 Body mass index [BMI] 22.0-22.9, adult; E03.9 Hypothyroidism, unspecified; I25.10 Atherosclerotic heart disease of native coronary artery without angina pectoris; J44.9 Chronic obstructive pulmonary disease, unspecified; Z79.01 Long term (current) use of anticoagulants; Z79.899 Other long term (current) drug therapy; Z87.891 Personal history of nicotine dependence; Z93.3 Colostomy status; Z95.0 Presence of cardiac pacemaker
CPT/HCPCS: 36415; 36600; 71010; 74000; 78452; 80048; 80053; 82040; 82803; 82962; 83735; 83880; 84100; 84443; 84484; 85025; 85610; 93005; 93017; 93306; 93922; 94640; 96374; 96375; 96376; J1940; J2405; J2785; J3480; J7030; J7613; Q0167; A9502; C9898; J3475; J7040; J7050; S0028

== ENCOUNTER 2017-05-14 14:27 | Emergency (ER) | payer BC, MEDICARE ==
[~2017-05-14] VITALS: Ht 167.6 cm; Wt 62.0 kg
[~2017-05-14 14:27] MED LIST changes: +ALBU1.25 NEB; +APIX5TAB PO; +ATOR20TA9 PO; +CARV6.2512 PO; +FOLI-17 PO; +LEVO100T5 PO; +THIA100T6 PO
[2017-05-14 17:05] VITALS: BP 126/81
== END 2017-05-14 17:45 | disposition home or self-care (01) ==
LOC: ED 17:39
DX: M79.662 Pain in left lower leg (principal); M79.661 Pain in right lower leg; G89.29 Other chronic pain; J44.9 Chronic obstructive pulmonary disease, unspecified; I50.9 Heart failure, unspecified; W01.0XXA Fall on same level from slipping, tripping and stumbling without subsequent striking against object, initial encounter; Y93.89 Activity, other specified; Y92.89 Other specified places as the place of occurrence of the external cause; Y99.8 Other external cause status
CPT/HCPCS: 93970; 99284